=== PATIENT | male | born 1980 | race Caucasian/White ===

== ENCOUNTER 2019-01-05 15:36 | Emergency (ER) | payer BC ==
--- NOTE | 2019-01-05 15:42 | ED ---
Upper Extremity Pain - HPI Summary HPI Summary: 38 yo male presents to [facility] [place] [facility] with left shoulder injury. He tells me that he was hiking at [place] today and slipped on the wet rocks - landed with his left arm adducted and felt a pop and pain in his left shoulder. Noticed deformity. Unable to move shoulder. He is ambidextrous. He has not taken anything OTC for his discomfort. Denies head injury, numbness, or tingling. He has never dislocated this shoulder before. - History of Current Complaint Chief Complaint: EDShouVazquez Stated Complaint: LEFT SHOULDER DISLOCATION PER PT Time Seen by Provider: 01/05/19 15:41 Hx Obtained From: Patient Mechanism Of Injury: Fall From Height Of: - standing Severity Initially: Moderate Severity Currently: Moderate Pain Location: Shoulder - Allergies/Home Medications Allergies/Adverse Reactions: Allergies Allergy/AdvReac Type Severity Reaction Status Date / Time No Known Allergies Allergy Verified 01/05/19 15:39 Home Medications: Home Medications Albuterol Sulfate [Albuterol Sulfate Hfa] 1 puff INH Q8H 01/05/19 [History Confirmed 01/05/19] Lisinopril TAB* [Prinivil TAB 5 MG*] 5 mg PO DAILY 01/05/19 [History Confirmed 01/05/19] PMH/Surg Hx/FS Hx/Imm Hx Endocrine/Hematology History: Denies: Hx Diabetes Cardiovascular History: Reports: Hx Hypertension Denies: Hx Atrial Fibrillation, Hx Congestive Heart Failure Respiratory History: Reports: Hx Asthma Denies: Hx Chronic Obstructive Pulmonary Disease (COPD) History: Denies: Hx Dialysis Musculoskeletal History: Denies: Hx Arthritis, Hx Fibromyalgia Neurological History: Denies: Hx CVA Psychiatric History: Reports: Hx Attention Deficit Hyperactivity Disorder Denies: Hx Anxiety, Hx Depression - Surgical History Surgical History: None - Immunization History Immunizations Up to Date: Yes Infectious Disease History: No Infectious Disease History: Denies: Traveled Outside the [place] in Last 30 Days - Family History Known Family History: Positive: Non-Contributory - Social History Occupation: Employed Full-time Lives: With Family Alcohol Use: Occasionally Substance Use Type: Reports: None Smoking Status (MU): Never Smoked Tobacco Review of Systems Constitutional: Negative Eyes: Negative ENT: Negative Cardiovascular: Negative Respiratory: Negative Gastrointestinal: Negative Genitourinary: Negative Musculoskeletal: Other - Left shoulder pain Skin: Negative Neurological: Negative Psychological: Normal All Other Systems Reviewed And Are Negative: Yes Physical Exam - Summary Physical Exam Summary: GENERAL: NAD. WDWN. No pain distress. SKIN: No rashes, sores, lesions, or open wounds. CHEST: No accessory muscle use. Breathing comfortably and in no distress. CV: Pulses intact radial and ulnar. Cap refill <2seconds MSK: LEFT SHOULDER: Obvious inferior anterior deformity. Mild TTP about shoulder. Decreased ROM due to pain. NEURO: Alert. Sensations intact C4-T1 b/l. PSYCH: Age appropriate behavior. Triage Information Reviewed: Yes Vital Signs On Initial Exam: Initial Vitals Temp Pulse Resp BP Pulse Ox 96.8 F 58 19 164/103 93 01/05/19 15:37 01/05/19 15:37 01/05/19 15:37 01/05/19 15:37 01/05/19 15:37 Vital Signs Reviewed: Yes Procedures - Joint Reduction Left Joint Reduction Site: shoulder (L) Conscious Sedation: No Reduction Attempts: 1 - Chair and milch method Pre-Procedure NV Exam: Yes Post Joint Reduction Film: joint reduced Diagnostics - Vital Signs Vital Signs Temp Pulse Resp BP Pulse Ox 01/05/19 15:37 96.8 F 58 19 164/103 93 - Laboratory Lab Statement: Any lab studies that have been ordered have been reviewed, and results considered in the medical decision making process. - Radiology Clavicle and shoulder Radiology Interpretation Completed By: Radiologist Summary of Radiographic Findings: FINDINGS: The humerus appears to be displaced inferiorly and anteriorly relative to the. bony glenoid labrum. The visualized bones are otherwise intact and anatomically aligned. IMPRESSION: LEFT SHOULDER DISLOCATION. Course/Dx - Course Course Of Treatment: XR confirms shoulder dislocation anterior. Pt was given percocet po for his discomfort with good relief. Using the chair and milch method, the left shoulder was reduced without difficulty. Pt tolerated very well. Post reduction XR appears to have good alignment and position. Pt placed in shoulder immobilizer and advised to RICE and f/u with Orthopedics within 3-5 days for a recheck - Diagnoses Provider Diagnoses: Dislocation of left shoulder joint Discharge - Sign-Out/Discharge Documenting (check all that apply): Patient Departure Patient Received Moderate/Deep Sedation with Procedure: No - Discharge Plan Condition: Stable Disposition: HOME Prescriptions: oxyCODONE/Acetamin 5/325 MG* [Percocet 5/325 TAB*] 1 tab PO Q8H PRN #9 tab MDD 3 PRN Reason: Pain Patient Education Materials: Shoulder Dislocation Exercises (GEN), Shoulder Dislocation (ED) Forms: *Work Release Referrals: No Primary Care Phys,NOPCP [Primary Care Provider] - Simin Blunt MD [Medical Doctor] - As Soon As Possible Additional Instructions: If you develop a fever, shortness of breath, chest pain, new or worsening symptoms - please call your PCP or go to the ED immediately. Your blood pressure was high at todays visit. Please see your primary provider within 4 weeks for recheck and re-evaluation. 1) Use the shoulder immobilizer as much as possible over the next week 2) Apply ice to your shoulder to decrease pain and swelling 3) Please call Orthopedics at the number below to schedule an appointment for a recheck in 3-5 days - Billing Disposition and Condition Condition: STABLE Disposition: Home - Attestation Statements Provider Attestation: I am administratively signing this document. I was available for consultation for this patient. I did not evaluate the patient, did not have a doctor/patient relationship with the patient, or participate in any medical decision making or disposition decisions unless I am specifically named in the chart as having consulted on the patient. If I have consulted on the patient, please see my own ED note on the patient encounter. Sharath Cobos MD
[2019-01-05] MEDS ORDERED: Morphine 4 MG/ML VIAL (1 ml) 4 MG/ML VIAL IV ONE (16:43)
[2019-01-05] MEDS ORDERED: oxyCODONE/Acetamin 5/325 MG* TAB PO ONE (16:49)
[2019-01-05 18:46] VITALS: BP 139/99
== END 2019-01-05 18:45 | disposition home or self-care (01) ==
LOC: ED 15:36
DX: S43.005A Unspecified dislocation of left shoulder joint, initial encounter (principal); W19.XXXA Unspecified fall, initial encounter; Y93.01 Activity, walking, marching and hiking; Y92.89 Other specified places as the place of occurrence of the external cause; I10 Essential (primary) hypertension; J45.909 Unspecified asthma, uncomplicated; F90.9 Attention-deficit hyperactivity disorder, unspecified type; Z79.899 Other long term (current) drug therapy
CPT/HCPCS: 23650; 96374; 99282; A9270-GY